=== PATIENT | female | born 1975 | race African-American/Black ===

== ENCOUNTER 2017-01-01 00:24 | Emergency (ER) | payer OTHER ==
[~2017-01-01] VITALS: Ht 172.7 cm; Wt 104.3 kg
--- NOTE | ~2017-01-01 | CT4 ---
[facility] A Service of [facility] RADIOLOGY TEXT RESULTS PATIENT: CINDY HOWARD LOCATION: SED : 79 UNIT #: [id number] AGE: [address]: Devin Scherer MD SEX: F ORDER DR: [id number] [place] [id number] E MR#: [id number] Acc #: [id number] NAME: CINDY HOWARD. : 1975 SEX: F STUDY DATE/TIME: 01/01/2017 02:10 UNIT: SED ROOM: STUDY DESCRIPTION: CT Abd and Pelv Wo Cont Attending Physician: Devin Scherer M.D. Ordering Physician: Devin Chapman P.A.-C. Primary Care Physician: Marquis Burks M.D. MEDICAL IMAGING REPORT This report is preliminary unless electronic signature is present. EXAM CT abdomen and pelvis, 01/01 at 02:10 INDICATION Hematuria, bacteriuria on urinalysis this morning. Generalized abdominal pain that started today. TECHNIQUE Axial noncontrast images were obtained through the abdomen and pelvis. Multiplanar reformats were obtained. This CT exam was performed with one or more of the following radiation dose reduction techniques: automatic exposure control, adjustment of mA and/or kV according to patient size, and iterative reconstruction. COMPARISON 09/12/2015 FINDINGS ABDOMEN: Lung bases are clear except for some minimal atelectasis on the right. Gallbladder is surgically absent. No ureteral stones are seen on either side, and there is no hydronephrosis. Left renal cyst is again seen. Tiny nonobstructing stone noted in the upper pole of the right kidney. Unenhanced solid organs are otherwise normal. Unopacified GI tract is normal. Patient is status post mesh repair of the ventral wall. No free fluid. PELVIS: No lower ureteral stones are seen. The bladder is normal. Multiple phleboliths are present. Solid pelvic organs are grossly normal. The appendix is normal. The remainder of the unopacified GI tract is normal as well. Patient is status post mesh repair of the ventral wall. There is a small recurrent fat-containing hernia in the midline. [facility] A Service of [facility] RADIOLOGY TEXT RESULTS PATIENT: CINDY HOWARD LOCATION: SED : 77 UNIT #: [id number] AGE: [address]: Devin Scherer MD SEX: F ORDER DR: IMPRESSION 1. Tiny nonobstructing right renal stone. No ureteral stones are seen, and there is no hydronephrosis. 2. Grossly normal unopacified GI tract, including the appendix. 3. Ventral wall hernia repair. There is a very small recurrent fat-containing ventral wall hernia in the low pelvis. 4. Cholecystectomy. 5. Left renal cyst. Dictated by... Gray Mcadams Jr., M.D. THIS IS AN ELECTRONICALLY VERIFIED REPORT Gray Mcadams Jr., M.D. at 01/02/2017 6:02 AM JACINTA[place] TD: 01/01/2017 09:54 JOB #: [id number] MEDICAL IMAGING REPORT Page 1 of 1
[~2017-01-01 00:24] MED LIST: ADVAIR; BACITRACIN15 GM TP; BACTRIM DS TABL1 TA1 PO; BENADRYL PO; BP MED; CLARITIN10 M3 PO; IBUPROFEN800 MG; MEDROL PO; METFORMIN PO; METRONIDAZOLE PO; NAPROXEN PO; PRAVACHOL PO; SINGULAIR; TYLENOL/CODEINE1 TA1 PO; ZOFRAN ODT4 MG PO
[2017-01-01 01:35] LABS: URINE APPEARANCE CLEAR; URINE BILIRUBIN NEG (NEG); URINE BLOOD 3+ (NEG); URINE COLOR YELLOW; URINE GLUCOSE NEG (NORM); URINE KETONE NEG (NEG); URINE LEUKOCYTE ESTERASE NEG (NEG); URINE NITRATE NEG (NEG); URINE PH 5.5 (5-8); URINE PROTEIN NEG (NEG); URINE SPECIFIC GRAVITY >=1.030 (1.003-1.035); URINE UROBILINOGEN 0.2 MG/DL (NORM)
[2017-01-01 01:38] LABS: MICRO INDICATED? YES
[2017-01-01 01:39] LABS: BASOPHIL# 0.1 X10e3 (0-0.3); BASOPHIL% 0.7 % (0-2.5); EOSINOPHIL# 0.1 X10e3 (0-0.7); EOSINOPHIL% 1.4 % (0.0-7.0); HEMATOCRIT 40.6 % (35.0-45.0); HEMOGLOBIN 13.9 gm/dL (12.0-16.0); LYMPHOCYTE# 2.4 X10e3 (1.0-3.5); LYMPHOCYTE% 28.8 % (17.0-45.0); MEAN CELL VOLUME 90.8 FL (83-96); MEAN CORPUSCULAR HEMOGLOBIN 31.2 PG (28-34); MEAN CORPUSCULAR HGB CONC 34.3 g/dL (30-36); MEAN PLATELET VOLUME 7.4 FL (6.5-11.5); MONOCYTE# 0.5 X10e3 (0-1.0); NEUTROPHIL# 5.3 X10e3 (1.5-7.1); NEUTROPHIL% 63.1 % (40-75); PLATELET COUNT 245 X10e3 (140-420); RED BLOOD COUNT 4.47 X10e (3.90-5.30); RED CELL DISTRIBUTION WIDTH 13.9 % (11.0-15.5); WHITE BLOOD COUNT 8.4 X10e3 (4.0-10.5)
[2017-01-01 01:43] LABS: DIFF IND NO
[2017-01-01 01:49] LABS: CULTURE INDICATED? YES; URINE BACTERIA 2+ (NEG); URINE RBC 100-200 /[HPF] (0-2); URINE SQUAMOUS EPITHELIAL CELL MODERATE /[HPF]
[2017-01-01 01:50] LABS: URINE AMORPHOUS SEDIMENT AMORP URATES; URINE CRYSTALS CALCIUM OXALATE /[HPF]; URINE MUCUS PRESENT
[2017-01-01 01:53] LABS: ALBUMIN SERUM 3.9 g/dL (3.5-5.0); ALKALINE PHOSPHATASE 30 U/L (32-92); ALT (SGPT) 12 U/L (10-40); AST (SGOT) 15 U/L (10-42); BILIRUBIN,TOTAL 0.3 mg/dL (0.2-2.0); BLOOD UREA NITROGEN 11 mg/dL (9-23); BUN/CREATININE RATIO 18.33; CALCIUM SERUM 9.2 mg/dL (8.4-10.2); CARBON DIOXIDE 29 mmol/L (22-31); CHLORIDE 105 mmol/L (100-111); CREATININE SERUM 0.6 mg/dL (0.6-1.4); GLOM FILT RATE Estimated 133.1 mL/min (>60); GLUCOSE FASTING 123 mg/dL (70-110); LIPASE 24 U/L (22-51); POTASSIUM 3.4 mmol/L (3.5-5.1); PROTEIN TOTAL SERUM 7.5 g/dL (6.0-8.3); SODIUM 142 mmol/L (135-145)
[2017-01-01 01:54] LABS: BILIRUBIN, DIRECT <0.1 mg/dL (0.0-0.2); BILIRUBIN,INDIRECT 0.2 mg/dL (0.0-0.9)
[2017-02-08] MEDS ORDERED: LOPID600 MG PO (19:52)
[2017-02-08] MEDS ORDERED: CHEWABLE ASPIRI81 MG PO (19:52)
== END 2017-01-01 02:47 | disposition home or self-care (01) ==
LOC: SED 00:24
PROVIDERS: Emergency Medicine; Physician Assistant
DX: R10.84 Generalized abdominal pain (principal); E11.9 Type 2 diabetes mellitus without complications; E78.5 Hyperlipidemia, unspecified; F17.210 Nicotine dependence, cigarettes, uncomplicated; Z90.49 Acquired absence of other specified parts of digestive tract; Z79.899 Other long term (current) drug therapy; Z88.0 Allergy status to penicillin; Z88.8 Allergy status to other drugs, medicaments and biological substances
CPT/HCPCS: 36415; 74176; 80048; 80076; 81003; 83690; 84703; 85025; 87086; 96361; 96374; 96375; 99284; J1170; J2405

== ENCOUNTER 2017-01-20 01:36 | Emergency (ER) | payer OTHER ==
[~2017-01-20] VITALS: Ht 172.7 cm; Wt 104.3 kg
[2017-01-20 02:51] LABS: HEMATOCRIT 43.9 % (35.0-45.0); HEMOGLOBIN 14.6 gm/dL (12.0-16.0); MEAN CELL VOLUME 91.8 FL (83-96); MEAN CORPUSCULAR HEMOGLOBIN 30.5 PG (28-34); MEAN CORPUSCULAR HGB CONC 33.2 g/dL (30-36); MEAN PLATELET VOLUME 7.8 FL (6.5-11.5); RED BLOOD COUNT 4.79 X10e (3.90-5.30); RED CELL DISTRIBUTION WIDTH 14.2 % (11.0-15.5); WHITE BLOOD COUNT 8.4 X10e3 (4.0-10.5)
[2017-01-20 03:07] LABS: ALBUMIN SERUM 4.1 g/dL (3.5-5.0); BILIRUBIN,TOTAL 0.2 mg/dL (0.2-2.0); BUN/CREATININE RATIO 14.28; CALCIUM SERUM 9.3 mg/dL (8.4-10.2); CREATININE SERUM 0.7 mg/dL (0.6-1.4); GLOM FILT RATE Estimated 126.5 mL/min (>60); POTASSIUM 3.7 mmol/L (3.5-5.1)
[2017-02-08] MEDS ORDERED: CHEWABLE ASPIRI81 MG PO (19:52)
[2017-02-08] MEDS ORDERED: LOPID600 MG PO (19:52)
== END 2017-01-20 03:49 | disposition home or self-care (01) ==
LOC: SED 01:36
PROVIDERS: Emergency Medicine
DX: R10.12 Left upper quadrant pain (principal); R11.2 Nausea with vomiting, unspecified; Z76.5 Malingerer [conscious simulation]; E11.9 Type 2 diabetes mellitus without complications; J45.909 Unspecified asthma, uncomplicated; E78.5 Hyperlipidemia, unspecified; F17.200 Nicotine dependence, unspecified, uncomplicated
CPT/HCPCS: 36415; 80053; 83690; 85027; 96374; 96375; 99284; J2405